=== PATIENT | male | born 1940 | race Caucasian/White ===

== ENCOUNTER 2018-12-13 08:58 | Observation (INO) | payer MEDICARE ==
[~2018-12-13] VITALS: Ht 165.1 cm; Wt 89.2 kg
--- OUTSIDE RECORDS SUMMARY | ~2018-12-13 | XMS | Encounter Summary ---
Demographics + + + | Address | [address] | | | [place] [address] | + + + | Home Phone | | + + + | Preferred Language | Unknown | + + + | Marital Status | | + + + | Anabaptist Affiliation | 1041 | + + + | Race | Unknown | + + + | Ethnic Group | Unknown | + + + Author + + + | Author | [facility] | | | and [place] | + + + | Organization | [facility] | | | and [place] | + + + | Address | Unknown | + + + | Phone | Unavailable | + + + Support + + +---------+ + | Name | Relationship | Address | Phone | + + +---------+ + | Charlie Martinez | ECON | Unknown | | + + +---------+ + | Kael Martinez | ECON | Unknown | | + + +---------+ + Care Team Providers + +------+ + | Care Space Officer Name | Role | Phone | + +------+ + | Krishna Giron MD | PCP | | + +------+ + Reason for Visit + + + | Reason | Comments | + + + | Medication Refill | 90 day ambien to Mail order | + + + Encounter Details +--------+--------+ + + + | Date | Type | Department | Care Team | Description | +--------+--------+ + + + | 10/18/ | Refill | [facility] | Krishna Giron, | Medication Refill | | 2019 | | [facility] [address] | [place] [id number] | (90 day ambien to | | | | [address] | [place] [address] | Mail order) | | | | [place] [address] | [place], [place] | | | | | [place], [place] | [address] | | | | | [address] | | | | | | [phone] | | | +--------+--------+ + + + Social History + + + +--------+ + | Tobacco Use | Types | Packs/Day | Years | Date | | | | | Used | | + + + +--------+ + | Former Smoker | Cigarettes | 0.5 | 35 | Quit: 12/08/1992 | + + + +--------+ + + +---+---+---+ | Smokeless Tobacco: | | | | | Never Used | | | | + +---+---+---+ + + +---------+ + | Alcohol Use | Drinks/We | oz/Week | Comments | | | ek | | | + + +---------+ + | Yes | 0 | 1.2 | He drinks alcohol on ocassion. | | | Glasses | | | | | of wine | | | | | 0 Cans of | | | | | beer 0 | | | | | Standard | | | | | drinks or | | | | | | | | | | equivalen | | | | | t 2 | | | | | Shots of | | | | | liquor | | | + + +---------+ + + + + | Sex Assigned at | Date Recorded | | | | + + + | Not on file | | + + + as of this encounter Plan of Treatment +--------+---------+ + + + | Date | Type | Specialty | Care Team | Description | +--------+---------+ + + + | 01/02/ | Office | Endocrinology | Maureen Pabon MD | | | 2019 | Visit | | [address] [place] | | | | | | [address] | | | | | | [phone] | | | | | | | | +--------+---------+ + + + as of this encounter Visit Diagnoses + + | Diagnosis | + + | Primary insomnia | + + | Persistent disorder of initiating or maintaining sleep | + +"
--- OUTSIDE RECORDS SUMMARY | ~2018-12-13 | XMS | Encounter Summary ---
Demographics + + + | Address | [address] | | | [place] [address] | + + + | Home Phone | | + + + | Preferred Language | Unknown | + + + | Marital Status | | + + + | Taoist Affiliation | 1041 | + + + | Race | Unknown | + + + | Ethnic Group | Unknown | + + + Author + + + | Author | [facility] | | | and [place] | + + + | Organization | [facility] | | | [...] Team Providers + +------+ + | Care Loader Demolder Name | Role | Phone | + +------+ + | Krishna Giron MD | PCP | | + +------+ + Reason for Visit + + + | Reason | Comments | + + + | Medication Problem | Zolpidem | + + + Encounter Details +--------+--------+ + + + | Date | Type | Department | Care Team | Description | +--------+--------+ + + + | 11/28/ | Refill | [facility] [place] [facility] | Krishna Giron, | Medication Problem | | 2019 | | [facility] [address] | [place] [address] | (Zolpidem) | | | | [address] | [place] [address] | | | | | [place] [address] | [place], [place] | | | | | [place], [place] | [address] | | | | | [address] | | | | | | [phone] | | | +--------+--------+ + + + [...] [place] | | | | | | [address] | | | | | | [address] | | | | | | | | +--------+---------+ + + + as of this encounter Visit Diagnoses Not on filein this encounter"
--- OUTSIDE RECORDS SUMMARY | ~2018-12-13 | XMS | Encounter Summary ---
Demographics + + + | Address | [address] | | | [place] [address] | + + + | Home Phone | | + + + | Preferred Language | Unknown | + + + | Marital Status | | + + + | Voodoo Affiliation | 1041 | + + + | Race | Unknown | + + + | Ethnic Group | Unknown | + + + Author + + + | Author | [facility] | | | and [place] | + + + | Organization | [facility] | | | [...] Team Providers + +------+ + | Care Program Facilitator Name | Role | Phone | + +------+ + | Krishna Giron MD | PCP | | + +------+ + Reason for Visit + + + | Reason | Comments | + + + | Medication Refill | | + + + Encounter Details +--------+--------+ + + + | Date | Type | Department | Care Team | Description | +--------+--------+ + + + | 10/06/ | Refill | [facility] | Krishna Giron, | Medication Refill | | 2019 | | [facility] | [place] [address] | | | | | [address] | [place] [address] | | | | | [place] [address] | [place], [place] | | | | | [place], [place] | [address] | | | | | [address] | | | | | | [phone] | | | +--------+--------+ + + + [...] | Visit | | [address] [place] | | | | | | [address] [place] | | | | | | [address] | | | | | | | | +--------+---------+ + + + as of this encounter Visit Diagnoses + + | Diagnosis | + + | Chronic atrial fibrillation (HCC) - Primary | + + | Atrial fibrillation | + +"
--- OUTSIDE RECORDS SUMMARY | ~2018-12-13 | XMS | Clinical Summary ---
Demographics + + + | Address | [address] | | | [place] [address] | + + + | Home Phone | | + + + | Preferred Language | Unknown | + + + | Marital Status | | + + + | Latter Day Affiliation | 1041 | + + + | Race | Unknown | + + + | Ethnic Group | Unknown | + + + Author + + + | Author | [facility] | | | and [place] | + + + | Organization | [facility] | | | and [place] | + + + | Address | Unknown | + + + | Phone | Unavailable | + + + Support + + +---------+ + | Name | Relationship | Address | Phone | + + +---------+ + | Charlie Martinez | ECON | Unknown | | + + +---------+ + | Russ Martinez | ECON | Unknown | | + + +---------+ + Care Team Providers + +------+ + | Care Molder Automobile Carpets Name | Role | Phone | + +------+ + | Krishna Giron MD | PP | | + +------+ + Allergies + + + + + + | Active Allergy | Reactions | Severity | Noted | Comments | | | | | Date | | + + + + + + | Adhesive & Tape | Other (See Comments) | Medium | 02/10/20 | TEARS SKIN | | | | | 17 | | + + + + + + Current Medications + + + +---------+------+------+-------+ | Prescription | Sig. | Disp. | Refills | Star | End | Statu | | | | | | t | Date | s | | | | | | Date | | | + + + +---------+------+------+-------+ | Multiple | Take one tablet | | | 12/19 | | Activ | | Vitamins-Minerals | daily | | | 04/07 | | e | | (CENTRUM SILVER) | | | | 12 | | | | TABS | | | | | | | + + + +---------+------+------+-------+ | Propylene Glycol | Apply 1 drop to eye | | | | | Activ | | (SYSTANE BALANCE) | 2 times daily. | | | | | e | | 0.6 % SOLN | | | | | | | + + + +---------+------+------+-------+ | Glucosamine HCl | Take 2,000 mg by | | | | | Activ | | 1000 MG TABS | mouth Daily. | | | | | e | + + + +---------+------+------+-------+ | acetaminophen | Take 650 mg by mouth | | | | | Activ | | (TYLENOL) 325 mg | every 4 hours as | | | | | e | | tablet | needed. | | | | | | + + + +---------+------+------+-------+ | montelukast | Take 10 mg by mouth | | | 05/3 | | Activ | | (SINGULAIR) 10 mg | Daily. | | | 0/20 | | e | | tablet | | | | 13 | | | + + + +---------+------+------+-------+ | VENTOLIN HFA 108 | Take 1 puff by mouth | | | 09/2 | | Activ | | (90 BASE) MCG/ACT | as needed. | | | 3/20 | | e | | inhaler | | | | 13 | | | + + + +---------+------+------+-------+ | fish oil 1,000 mg | Take 1,000 mg by | | | | | Activ | | capsule | mouth 3 times daily. | | | | | e | + + + +---------+------+------+-------+ | omeprazole | Take 20 mg by mouth | 90 | 3 | 10/0 | | Activ | | (PRILOSEC) 20 mg | 2 times daily. | capsule | | 2/20 | | e | | capsuleIndications: | | | | 13 | | | | Unspecified | | | | | | | | gastritis and | | | | | | | | gastroduodenitis | | | | | | | | without mention of | | | | | | | | hemorrhage | | | | | | | + + + +---------+------+------+-------+ | tiZANidine | TAKE 1 TABLET EVERY | 180 | 1 | 04/1 | | Activ | | (ZANAFLEX) 2 MG | 6 HOURS FOR MUSCLE | tablet | | 9/20 | | e | | tablet | SPASM | | | 17 | | | + + + +---------+------+------+-------+ | dicyclomine | Take 10 mg by mouth | | | | | Activ | | (BENTYL) 10 mg | 2 times daily. | | | | | e | | capsule | | | | | | | + + + +---------+------+------+-------+ | Artificial Tear | Apply 1 Application | | | | | Activ | | Solution (GENTEAL | to eye nightly. | | | | | e | | TEARS OP) | | | | | | | + + + +---------+------+------+-------+ | | Inhale 1 puff into | 3 each | 1 | 06/0 | | Activ | | fluticasone-salmeter | the lungs Twice | | | /20 | | e | | ol (ADVAIR) 500-50 | Daily. | | | 17 | | | | mcg/puff diskus | | | | | | | | inhaler | | | | | | | + + + +---------+------+------+-------+ | metoprolol | Take 25 mg by mouth | | | | | Activ | | tartrate (LOPRESSOR) | 2 times daily. | | | | | e | | 25 mg tablet | | | | | | | + + + +---------+------+------+-------+ | rosuvastatin | Take 1 tablet by | 90 | 3 | 04/3 | | Activ | | (CRESTOR) 20 mg | mouth nightly. | tablet | | 0/20 | | e | | tablet | | | | 18 | | | + + + +---------+------+------+-------+ | digoxin (LANOXIN) | | | | 04/1 | | Activ | | 125 mcg tablet | | | | 3/20 | | e | | | | | | 18 | | | + + + +---------+------+------+-------+ | benazepril | | | | 05/2 | | Activ | | (LOTENSIN) 20 mg | | | | 1/20 | | e | | tablet | | | | 18 | | | + + + +---------+------+------+-------+ | | | | | 05/1 | | Activ | | HYDROcodone-acetamin | | | | 20 | | e | | ophen (NORCO) 5-325 | | | | 18 | | | | mg per tablet | | | | | | | + + + +---------+------+------+-------+ | metFORMIN | TAKE 2 TABLETS TWICE | 360 | 1 | 11/2 | | Activ | | (GLUCOPHAGE-XR) 500 | A DAY | tablet | | 6/20 | | e | | mg 24 hr | | | | 18 | | | | tabletIndications: | | | | | | | | Type 2 diabetes | | | | | | | | mellitus with | | | | | | | | diabetic | | | | | | | | polyneuropathy, | | | | | | | | without long-term | | | | | | | | current use of | | | | | | | | insulin (HCC) | | | | | | | + + + +---------+------+------+-------+ | mometasone | USE 2 SPRAYS IN EACH | 51 g | 2 | 12/0 | | Activ | | (NASONEX) 50 | NOSTRIL TWICE A DAY | | | 4/20 | | e | | mcg/nasal spray | | | | 18 | | | + + + +---------+------+------+-------+ | ELIQUIS 5 MG | TAKE 1 TABLET TWICE | 180 | 1 | 01/2 | | Activ | | tabletIndications: | A DAY | tablet | | 1/20 | | e | | Chronic atrial | | | | 19 | | | | fibrillation (HCC) | | | | | | | + + + +---------+------+------+-------+ | zolpidem (AMBIEN) | Take 1 tablet by | 90 | 0 | 01/3 | | Activ | | 10 mg | mouth nightly as | tablet | | 0/20 | | e | | tabletIndications: | needed for Insomnia. | | | 19 | | | | Primary insomnia | | | | | | | + + + +---------+------+------+-------+ Active Problems + + + | Problem | Noted Date | + + + | Primary insomnia | 06/12/2018 | + + + | Hypogonadism male | 04/12/2018 | + + + | Obesity (BMI 30.0-34.9) | 04/12/2018 | + + + | Leukocytosis | 12/26/2017 | + + + + + | Last Assessment & Plan: Followed by oncology in [place]. | | Continue scheduled appointment | + + + + + | Lymphadenopathy | 12/26/2017 | + + + + + | Last Assessment & Plan: Right submandibular nodule; ENT | | referral. | + + + + + | Acute pyelonephritis | 05/25/2017 | + + + | Mitral regurgitation | 04/26/2017 | + + + + + | Last Assessment & Plan: Chronic. Stable. Will continue to | | follow. | + + + + + | Tinea pedis | 03/08/2017 | + + + + + | Overview: Bilateral tinea rubra pedis. | + + + + + | COPD (chronic obstructive pulmonary disease) ([facility]) | 01/27/2017 | + + + + + | Last Assessment & Plan: Chronic, Stable. Continue medications | | at current dose. Pt uses albuterol and spiriva for control. | | Pt has seen pulmnology in the past. | + + + + + | Chronic atrial fibrillation (HCC) | 12/16/2016 | + + + + + | Last Assessment & Plan: Chronic, adequate rate control on | | antithrombotics. Cleared to hold as needed for appropriate | | surgery and/or procedures. | + + + + + | Type 2 diabetes mellitus with diabetic polyneuropathy, without | 12/16/2016 | | long-term current use of insulin (HCC) | | + + + + + | Last Assessment & Plan: Chronic, Stable. Continue medications | | at current dose. Pt uses metformin and diet for control. | + + + + + | Conjunctivitis | 06/06/2015 | + + + | Elevated LFTs | 02/22/2014 | + + + | Fatigue | 01/24/2014 | + + + + + | Last Assessment & Plan: Likely due to a non-complete | | resolution of UTI. | + + + + + | Arthralgia | 01/24/2014 | + + + | Lipoma of neck | 12/06/2013 | + + + + + | Last Assessment & Plan: Chronic. Does not wish removed at | | this time. | + + + + + | Stomatitis | 12/06/2013 | + + + | Oral thrush | 12/06/2013 | + + + | Tennis elbow | 06/20/2013 | + + + | Renal cyst, acquired, right | 06/20/2013 | + + + | Health care maintenance | 01/09/2013 | + + + + + | Overview: Last Colonoscopy 12/28/2012 Tubular adenoma at | | descending, transverse and sigmoid | + + + + + | Cramps, muscle, general | 01/01/2013 | + + + + + | Last Assessment & Plan: Patient take 2 mg of tizanidine twice | | daily for this chronic problem. | + + + + + | Asthmatic bronchitis , chronic (HCC) | 12/08/2012 | + + + + + | Last Assessment & Plan: Followed by Dr. Nolan. Recent PFT's | | normal FEV1 and FVC with mild decreased DLCO. | + + + + + | Essential hypertension | 12/08/2012 | + + + + + | Last Assessment & Plan: Stable blood pressure current | | regimen. | + + + + + | GASTRITISandGASTRODUODITIS W/O RACHEL LEIJA NOS | 02/22/2012 | + + + + + | Overview: ICD-10 Record update | + + + + + | BURSITIS, HIPS, BILATERAL | 01/14/2012 | + + + | OSTEOARTHRITIS, HIPS, BILATERAL | 01/14/2012 | + + + | Cervical strain | 06/14/2011 | + + + | Actinic keratosis | 06/01/2010 | + + + | Dermatitis | 05/18/2010 | + + + | Mixed hyperlipidemia | 05/18/2010 | + + + + + | Last Assessment & Plan: Chronic. Stable. Will continue to | | follow. | + + + + + | Lumbar radiculopathy | 05/14/2010 | + + + + + | Overview: Left | + + Resolved Problems + + + + | Problem | Noted | Resolved | | | Date | Date | + + + + | Carpal tunnel syndrome | 01/25/20 | | | | 14 | 7 | + + + + | Myalgia and myositis | 01/25/20 | | | | 14 | 4 | + + + + | Mass of left side of neck | 05/08/20 | | | | 13 | 3 | + + + + | Cough | 06/14/20 | | | | 11 | 3 | + + + + | Lateral epicondylitis | 05/18/20 | | | | 10 | 3 | + + + + | Wrist pain, left | 05/14/20 | | | | 10 | 3 | + + + + | Shoulder pain | 05/14/20 | | | | 10 | 3 | + + + + Encounters +--------+--------+ + + + | Date | Type | Specialty | Care Team | Description | +--------+--------+ + + + | 11/28/ | Refill | | Krishna Giron, | Medication Problem | | 2018 | | | MD | (Zolpidem) | +--------+--------+ + + + | 10/18/ | Refill | | Krishna Giron, | Medication Refill | | 2019 | | | MD | (90 day ambien to | | | | | | Mail order) | +--------+--------+ + + + | 10/06/ | Refill | | Krishna Giron, | Medication Refill | | 2018 | | | MD | | +--------+--------+ + + + from Last 3 Months Immunizations + + + + | Name | Dates Previously Given | Next Due | + + + + | INFLUENZA PF | 06/12/2018 | | | QUAD(PED/ADOL/ADULT) | | | | ,PSKT or VIAL | | | + + + + | INFLUENZA TRIV | 05/24/2015 | | | W/PRES(PED/ADOL/ADUL | | | | T),MULTIDOSE | | | + + + + | PNEUMOCOCCAL | 01/13/2015 | | | CONJUGATE 13-VALENT | | | | (PCV13) | | | + + + + | PNEUMOCOCCAL | 06/14/2014, 06/19/2004 | | | POLYSACCHARIDE | | | | 23-VALENT (PPSV23) | | | + + + + | TDAP, (ADOL/ADULT) | 06/21/2012 | | + + + + Family History + + +------+ + | Medical History | Relation | Name | Comments | + + +------+ + | Other (see comment) | Brother | | hepatitis C | + + +------+ + | Other (see comment) | Father | | Acute renal failure | + + +------+ + | Cancer | Mother | | | + + +------+ + | Cancer | Sister | | lymphoma | + + +------+ + | Other (see comment) | Son | | atrial fibrillation with ablation and | | | | | pacemake | + + +------+ + + +------+ + + | Relation | Name | Status | Comments | + +------+ + + | Brother | | | Hep C | | | | (Age | | | | | 67) | | + +------+ + + | Daughter | | Alive | | + +------+ + + | Father | | | Kidney Disease | | | | (Age | | | | | 44) | | + +------+ + + | Mother | | | GI Tumor | | | | (Age | | | | | 43) | | + +------+ + + | Sister | | | Lymphoma | | | | (Age | | | | | 61) | | + +------+ + + | Son | | Alive | | + +------+ + + | Son | | Alive | | + +------+ + + | Son | | Alive | | + +------+ + + Social History + + + [...] | | | + +---+---+---+ + + | Tobacco Cessation: Counseling Given: Yes | + + + + +---------+ + | Alcohol Use [...] on file | | + + + Last Filed Vital Signs + + + + | Vital Sign | Reading | Time Taken | + + + + | Blood Pressure | 114/56 | 06/12/2018834 PDT | + + + + | Pulse | 52 | 06/12/2018834 PDT | + + + + | Temperature | 36 C (96.8 F) | 06/12/2018834 PDT | + + + + | Respiratory Rate | 16 | 06/12/2018834 PDT | + + + + | Oxygen Saturation | 93% | 06/12/2018834 PDT | + + + + | Inhaled Oxygen | - | - | | Concentration | | | + + + + | Weight | 89.1 kg (196 lb 6.4 | 06/12/2018834 PDT | | | oz) | | + + + + | Height | 166.4 cm (5' 5.5") | 06/12/2018834 PDT | + + + + | Body Mass Index | 32.19 | 06/12/2018 0835 PDT | + + + + Plan of Treatment +--------+---------+ + + + | Date | Type | Specialty | Care Team | Description | +--------+---------+ + + + | 01/02/ | Office | | Maureen Pabon MD | | | 2019 | Visit | | [address] | | | | | | [address] | | | | | | [address] | | | | | | | | +--------+---------+ + + + + + + + + | Health Maintenance | Due Date | Last Done | Comments | + + + + + | Vaccine: Zoster (1 | | | | | of 2) | 9 | | | + + + + + | Hemoglobin A1c Q6 | | 05/15/2018, 12/15/2017, | | | Months | 9 | 03/28/2017, Additional history | | | | | exists | | + + + + + | Adult Annual | | 12/20/2017, 12/20/2017 | | | Wellness Visit | 9 | | | + + + + + | Diabetic Eye Exam | | 03/08/2017 | | | | 9 | | | + + + + + | Diabetic Foot Exam | | 05/12/2018, 03/08/2017, | | | | 9 | 03/08/2017 | | + + + + + | Vaccine: | | 06/21/2012 | | | Dtap/Tdap/Td (2 - | 2 | | | | Td) | | | | + + + + + | Vaccine: | Completed | 01/13/2015, 06/14/2014, | | | Pneumococcal 65+ | | 06/19/2004 | | | Low/Medium Risk | | | | + + + + + | Vaccine: Influenza | Completed | 06/12/2018, 05/24/2015 | | + + + + + Results Not on filefrom Last 3 Months Insurance + +--------+ +--------+ +---------+ | Payer | Benefi | Subscriber | Type | Phone | Address | | | t Plan | ID | | | | | | / | | | | | | | Group | | | | | + +--------+ +--------+ +---------+ | MEDICARE | MEDICA | [id number] | Medica | [phone] | | | RE | | re | [phone] | | | | PART A | | | | | | | AND B | | | | | + +--------+ +--------+ +---------+ | AARP | AARP | [id number] | Indemn | [phone] | | | MDCR | | ity | [id number] | | | | SUPPL | | | | | + +--------+ +--------+ +---------+ + +--------+ +--------+ + + | Guarantor Name | Accoun | Relation to | Date | Phone | Billing Address | | | t Type | Patient | of | | | | | | | | | | + +--------+ +--------+ + + | LAKSHMI MARTINEZ | Person | Self [birth year] Home: | [address] | | [place] | [place] | | 1940 | [phone] | [place], [place] | | | [place] | | | [phone] | + +--------+ +--------+ + +
[2018-12-13] MEDS ORDERED: BENAZEPRIL HCL40 MG PO (09:42)
[2018-12-13] MEDS ORDERED: CRESTOR20 MG PO (09:43)
[2018-12-13] MEDS ORDERED: MONTELUKAST SOD10 MG PO (09:43)
[2018-12-13] MEDS ORDERED: OMEPRAZOLE20 MG PO (09:44)
[2018-12-13] MEDS ORDERED: GLUCOPHAGE XR500 MG PO (09:45)
[2018-12-13] MEDS ORDERED: DICYCLOMINE HCL10 MG PO (09:45)
[2018-12-13] MEDS ORDERED: TIZANIDINE HCL2 M1 PO (09:45)
[2018-12-13] MEDS ORDERED: GLUCOSAMINE R1000 MG PO (09:47)
[2018-12-13] MEDS ORDERED: ADVAIR 500-501 EACH INH (09:47)
[2018-12-13] MEDS ORDERED: SPIRIVA RESPIMAT4 GM INH (09:48)
[2018-12-13] MEDS ORDERED: VENTOLIN HFA18 GM INH (09:48)
[2018-12-13] MEDS ORDERED: SYSTANE1 EACH TOP (09:49)
[2018-12-13] MEDS ORDERED: GENTEAL TEARS 015 M1 OP (09:50)
[2018-12-13] MEDS ORDERED: ELIQUIS5 MG PO (09:50)
[2018-12-13] MEDS ORDERED: METOPROLOL SUCC25 MG PO (09:51)
[2018-12-13] MEDS ORDERED: DIGITEK250 MCG PO (09:52)
[2018-12-13] MEDS ORDERED: NORCO 5-325 TA1 EACH PO (09:53)
[2018-12-13] MEDS ORDERED: ROZEREM8 MG PO (09:53)
[2018-12-13] MEDS ORDERED: ASMANEX HFA13 GM NAS (13:00)
[2018-12-13] MEDS ORDERED: CENTRUM COMPLE1 EACH PO (13:01)
[2018-12-13] MEDS ORDERED: FISH OIL 1,0001 EAC3 PO (13:03)
[2018-12-14] MEDS ORDERED: TAMIFLU75 MG PO (10:38)
== END 2018-12-14 11:25 | disposition home or self-care (01) ==
LOC: ED 08:58 → MS 08:59
PROVIDERS: ADMIT Internal Medicine
DX: J10.1 Influenza due to other identified influenza virus with other respiratory manifestations (principal); R09.02 Hypoxemia; J44.9 Chronic obstructive pulmonary disease, unspecified; I48.1 Persistent atrial fibrillation; I10 Essential (primary) hypertension; E11.9 Type 2 diabetes mellitus without complications; Z87.891 Personal history of nicotine dependence; Z79.02 Long term (current) use of antithrombotics/antiplatelets; Z79.84 Long term (current) use of oral hypoglycemic drugs; Z79.891 Long term (current) use of opiate analgesic; Z79.51 Long term (current) use of inhaled steroids; Z79.899 Other long term (current) drug therapy
CPT/HCPCS: 36415; 71046; 80048; 80053; 80162; 83605; 83735; 85025; 87502; 94640; 96361; 96365; 96374; 99285-25; G0378; J2405; J3475; J7030; J7040